=== PATIENT | female | born 1985 | race Caucasian/White ===

== ENCOUNTER 2022-04-01 15:01 | Emergency (ER) | payer OTHER ==
[~2022-04-01] VITALS: Ht 154.9 cm; Wt 77.1 kg
[2022-04-01 15:06] VITALS: BP 118/81
--- NOTE | 2022-04-01 15:28 | NUR ---
CALLED [facility] [phone] [employer] #[phone] UNIT WILL BE DISPATCHED TO ER.
--- NOTE | 2022-04-01 15:50 | NUR ---
HIRAM HOLDEN. WAS SEEN AND EVALUATED BY DR MILTON.
== END 2022-04-01 15:53 | disposition home or self-care (01) ==
LOC: ER 15:06
DX: S00.211A Abrasion of right eyelid and periocular area, initial encounter (principal); S00.31XA Abrasion of nose, initial encounter; Y09 Assault by unspecified means; Y93.89 Activity, other specified; Y92.89 Other specified places as the place of occurrence of the external cause; Y99.8 Other external cause status